=== PATIENT | female | born 1985 | race Caucasian/White ===

== ENCOUNTER → 2018-03-17 | Outpatient (CLI) | payer OTHER | LOC: FIMAGING 10:17 | PROVIDERS: ATTEND Obstetrics & Gynecology | DX: Z34.01 Encounter for supervision of normal first pregnancy, first trimester (principal); Z3A.12 12 weeks gestation of pregnancy ==

== ENCOUNTER → 2018-05-05 | Outpatient (CLI) | payer OTHER | LOC: FIMAGING 07:20 | PROVIDERS: ATTEND Obstetrics & Gynecology | DX: Z34.02 Encounter for supervision of normal first pregnancy, second trimester (principal); Z3A.19 19 weeks gestation of pregnancy ==

== ENCOUNTER 2018-10-03 09:05 | Inpatient (IN) | payer OTHER ==
[2018-10-03] MEDS ORDERED: OXYTOCIN/RINGERS LACTATE 1,000 ML IV PRN (09:12)
[2018-10-03] MEDS ORDERED: TERBUTALINE SULFATE 1 MG/ML VIAL IV PRN (09:12)
[2018-10-03] MEDS ORDERED: LIDOCAINE 1% 300 MG/30 ML SDV SC PRN (09:12)
[2018-10-03] MEDS ORDERED: EPSOM SALT 454 GM TP PRN (09:12)
[2018-10-03] MEDS ORDERED: OLIVE OIL 118 ML BTL MISC PRN (09:12)
[2018-10-03] MEDS ORDERED: IBUPROFEN 600 MG TAB PO PRN (09:12)
[2018-10-03] MEDS ORDERED: MISOPROSTOL 200 MCG TAB PR PRN (09:12)
[2018-10-03] MEDS ORDERED: PENICILLIN G POTASSIUM 5,000,000 UNIT in D5W 150 ML IV ONE (09:30)
--- NOTE | 2018-10-03 09:36 | PDGENHP ---
History and Physical History and Physical: Care: [facility] HPI: Patient is a 33 yo with IUP@ 41-0 weeks that presents to L&D for IOL. She denies any regular contractions, LOF, vb. She reports +FM. She is very anxious. EDC: 09/26/18 which is based on Ultrasound at 6 weeks. Her is complicated by: anxiety, platelets @ 144, +GBS Review of Systems: Constitutional: Denies any fever, chills, or fatigue HEENT: denies any visual changes, difficulty swallowing, hearing loss Cardiovascular: Denies any chest pain, palpitations, leg swelling Respiratory: denies any cough, wheezing, or shortness of breathe GI: Denies any nausea, vomiting, diarrhea, constipation : denies any dysuria, urgency, frequency, vaginal bleeding Musculoskeletal: denies any muscle or bone pain Skin: denies any rashes Neuro: denies any headache, seizures, lightheadedness, dizziness, or loss of consciousness Psychiatric: denies any depression, anxiety, or SI/HI thoughts HISTORY: Previous OB history: G1 Past medical history: anxiety Past surgical history: none Social: Denies any alcohol, tobacco, or drug use. works as [employer]. - Hal Family history: Not relevant Medications: PNV Allergies (list reaction): NKDA LABS: Rh: O+ ABS: Neg Rubella: Immune HbsAg: NR HIV: NR VDRL: NR 1hr: 80 GC: Neg Chlamydia: Neg Pap: Normal GBS: + PHYSICAL EXAM: Constitutional: WN, A&Ox3 HEENT: normocephalic atraumatic, supple Skin: Warm, dry, intact Heart: RRR, no murmur Chest: CTA-B Abdomen: Soft, nontender, gravid SVE: 2/70/-2 Extremities: no edema, negative homans sign Neuro: grossly normal Psych: normal affect assessment: FHT [id number] +accels, no decels, moderate variability Contractions: toco none Assessment: 1) [id number] with IUP@41-0wks 2) PD IOL 3) GBS + 4) Cat 1 FHR tracing Plan: 1) Admit to L&D 2) cook catheter placed 3) pitocin in 6-12hr/PRN 4) reassess 4hrs/PRN 5) IA per protocol 6) hydrotherapy/pain management PRN Today's visit was approximately 30 min, of which >50% of visit 20 min, was spent face to face with pt on direct counseling/coordination of care.
[2018-10-03 10:21] LABS: PLATELET COUNT 121 10^3/uL (150-400)
[2018-10-03] MEDS: LR 1,000 ML IV PRN ×2 (11:04→23:29)
[2018-10-03] MEDS ORDERED: LIDOCAINE 1% 300 MG/30 ML SDV ONE (11:12)
[2018-10-03] MEDS ORDERED: AMMONIA AROMATIC 1 EACH AMP IH ONE (11:13)
[2018-10-03] MEDS ORDERED: MISOPROSTOL 200 MCG TAB ONE (11:13)
[2018-10-03] MEDS ORDERED: OXYTOCIN 10 UNIT/ML VIAL ONE (11:13)
[2018-10-03] MEDS ORDERED: TERBUTALINE SULFATE 1 MG/ML VIAL ONE (11:13)
[2018-10-03] MEDS ORDERED: OLIVE OIL 118 ML BTL ONE (11:13)
[2018-10-03] MEDS ORDERED: D5W IV SCH (13:30)
[2018-10-03] MEDS ORDERED: PENICILLIN POTASSIUM IV SCH (13:30)
[2018-10-03] MEDS: PENICILLIN G POTASSIUM 2,500,000 UNIT in D5W 150 ML IV SCH ×3 (15:06→23:27)
[2018-10-03] MEDS ORDERED: LR 500 ML IV PRN (17:30)
[2018-10-03] MEDS ORDERED: OXYTOCIN/RINGERS LACTATE 500 ML IV SCH (17:30)
--- NOTE | 2018-10-03 20:07 | OBPROG ---
Labor Progress Note Assessment/Plan: Assessment: [id number] with IUP@41-wks IOL GBS+ Cat 2 FHR tracing Plan: cont pitocin AROM hydrotherapy/pain management PRN 10/03/18 20:03 10/03/18 20:06 Subjective/Intrapartum Course: 10/03/18 20:04 Princess is breathing through contractions. She is ambulating in room and continuing to do position changes. desires hydrotherapy. Hal @ BS and supportive. Objective: 10/03/18 10:05 Patient ABO/Rh O POSITIVE 10/03/18 10:05 - SVE Dilation (cm): 4 Effacement (%): 80 Station: -2 Membranes: Intact - Contraction Pattern Assessment Current Contraction Pattern: Regular - FHR Assessment Velez FHR (bpm): 130 (variable and early decelerations noted) FHR Pattern Variability: Moderate FHR Category: 2 Oxytocin Orders Assessment - Pre-Induction/Augmentation Assessment Gestational Age: 41 week(s) and 0 day(s) ICD10 Worksheet Patient Problems: Problems Problem Status Onset Encounter for induction of labor Acute GBS (group B Streptococcus carrier), +RV culture, currently Acute - ICD10 Problem Qualifiers (1) Encounter for induction of labor (2) GBS (group B Streptococcus carrier), +RV culture, currently
--- NOTE | 2018-10-04 00:57 | OBDEL ---
Info Type: Vaginal Presentation at Delivery: Vertex L&D Analgesia/Anesthesia Type: Local GBS+: Yes Intrapartum Medications: Generic Name Dose Route Start Last Admin Trade Name Freq PRN Reason Stop Dose Admin Lactated Ringer's 1,000 mls @ 0 mls/hr 10/03/18 09:12 10/03/18 23:29 Lr IV 10/04/18 09:11 1,000 mls PRN PRN Administration SEE PROTOCOL CONDITIONS Protocol Per Protocol Penicillin G Potassium 2,500, 155 mls @ 155 mls/hr 10/03/18 13:30 10/03/18 23 :27 000 unit/ Dextrose IV 11/02/18 13:29 155 mls Q4H ADIS Administration [place] Oil 118 ml 10/03/18 09:12 10/03/18 23:29 Sweet Oil MISC 04/01/19 09:11 1 btl ONCE PRN Administration perineal massage Discontinued Medications Generic Name Dose Route Start Last Admin Trade Name Freq PRN Reason Stop Dose Admin Penicillin G Potassium 5,000, 160 mls @ 155 mls/hr 10/03/18 09:30 10/03/18 11 :05 000 unit/ Dextrose IV 10/03/18 10:31 160 mls ONCE ONE Administration Protocol - Infant Care Provider Culture Room Worker/EMR TRAINER: Caroline Diamond - Hospital Course Intrapartum: 10/03/18 20:04 Princess is breathing through contractions. She is ambulating in room and continuing to do position changes. desires hydrotherapy. Hal @ BS and supportive. Indications for Delivery: Postterm Unfavorable Cervix Vaginal Delivery - Delivery Provider Delivery Physician/CNM: Laurie Lyles (Dr Armijo Present for VAVD) - Labor and Delivery Onset of Contractions Date: 10/03/18 Onset of Contractions Time: 18:30 Onset of Contractions Type: Induced Rupture of Membranes Date: 10/03/18 Rupture of Membranes Time: 21:30 Rupture of Membranes Type: Artificial Amniotic Fluid Color: Thick Meconium Dilation Complete Date: 10/03/18 Dilation Complete Time: 22:59 Placenta Delivery Date: 10/04/18 Placenta Delivery Time: 00:07 Total Hours of Labor: 5 Non-surgical Procedures: Amniotomy, FSE Episiotomy: Right Lateral Laceration: 1st Degree Repair: 3-0, Vicryl Vaginal Sponge Count Correct: Yes Vaginal Needle Count Correct: Yes Vaginal Sweep Performed: Yes EBL: 300 Delivery Comment: Dr Armijo called to BS @ 0565 for decelerations. Pt was c/c/+1, and pt was pushing with contractions. FHR was 115 +accels, moderate variability Dr Armijo arrived to BS and there were 2 applications/pulls/pop offs with VAVD vacuum was released and pt delivered with small ML episiotomy during applications of vacuum and while vacuum was not applied, FHR was 115-125 with moderate variability baby delivered after epis was made baby was placed on mothers abdomen, where cord was clamped x2 and cut quickly and handed to EMR TRAINER and taken to warm Cord Gases: Cord Gases Cord Blood PCO2 94 mmHg (37-60) H 10/04/18 00:02 Cord Base Excess -24.3 mEq/L (-13.6--3.2) L 10/04/18 00:02 Cord ABG pH 6.87 (7.10-7.37) L 10/04/18 00:02 Cord VBG pH 7.11 (7.20-7.42) L 10/04/18 00:02 - Medications Labor Augmentation/Induction Methods Used: Pitocin, Other (Specify) (cook catheter) Labor Augmentation/Induction Indication: Post Dates Operative Report - Delivery Cord Gases: Cord Gases Cord Blood PCO2 94 mmHg (37-60) H 10/04/18 00:02 Cord Base Excess -24.3 mEq/L (-13.6--3.2) L 10/04/18 00:02 Cord ABG pH 6.87 (7.10-7.37) L 10/04/18 00:02 Cord VBG pH 7.11 (7.20-7.42) L 10/04/18 00:02 Data MERISSA: 09/26/18 Gestational Age: 41 week(s) and 1 day(s) Velez Delivery Date: 10/04/18 Delivery Time: 00:02 Sex of : Male [place] Weight (gm): 0 g Score (1 Min): 5 Score (5 Min): 8 Score (10 Min): 8 ICD10 Worksheet Patient Problems: Problems Problem Status Onset Encounter for induction of labor Acute GBS (group B Streptococcus carrier), +RV culture, currently Acute Vacuum-assisted delivery, delivered, current hospitalization Acute - ICD10 Problem Qualifiers (1) Encounter for induction of labor (2) GBS (group B Streptococcus carrier), +RV culture, currently (3) Vacuum-assisted delivery, delivered, current hospitalization
[2018-10-04] MEDS ORDERED: HYDROCORTISONE 0.5% CREAM TP PRN (01:07)
[2018-10-04] MEDS ORDERED: SIMETHICONE 80 MG TAB CHEW PO PRN (01:07)
[2018-10-04] MEDS ORDERED: DOCUSATE SODIUM 100 MG CAP PO PRN (01:07)
--- NOTE | 2018-10-04 01:12 | OBPROG ---
Labor Progress Note Assessment/Plan: Assessment: [id number] with IUP@41-wks IOL GBS+ Cat 2 FHR tracing Plan: decrease pitocin hydrotherapy pain management PRN anticipate Subjective/Intrapartum Course: 10/03/18 20:04 Princess is breathing through contractions. She is ambulating in room and continuing to do position changes. desires hydrotherapy. Hal @ BS and supportive. 10/04/18 22:22 Pt breathing with each contraction. currently in tub- states she is most comfortable there. Hal @ BS, supportive Objective: 10/03/18 10:05 Patient ABO/Rh O POSITIVE 10/03/18 10:05 Temp Pulse Resp BP Pulse Ox 36.8 C 127 H 18 115/60 10/04/18 00:57 10/04/18 00:57 10/04/18 00:57 10/04/18 00:57 - SVE Dilation (cm): 8 Effacement (%): 80 Station: -1 Membranes: SROM Amniotic Fluid Color: Thick Meconium Dilation Complete Date: 10/03/18 Dilation Complete Time: 22:59 - Contraction Pattern Assessment Current Contraction Pattern: Regular - Procedures Non-surgical Procedures: Amniotomy, FSE Oxytocin Orders Assessment - Pre-Induction/Augmentation Assessment Gestational Age: 41 week(s) and 0 day(s) ICD10 Worksheet Patient Problems: Problems Problem Status Onset Encounter for induction of labor Acute GBS (group B Streptococcus carrier), +RV culture, currently Acute Vacuum-assisted delivery, delivered, current hospitalization Acute - ICD10 Problem Qualifiers (1) Encounter for induction of labor (2) GBS (group B Streptococcus carrier), +RV culture, currently (3) Vacuum-assisted delivery, delivered, current hospitalization
[2018-10-04] MEDS: ACETAMINOPHEN 325 MG TAB PO SCH ×4 (01:15→21:14)
[2018-10-04] MEDS: oxyCODONE IR 5 MG TAB PO PRN ×2 (03:14→10:49)
[2018-10-04] MEDS: PENICILLIN G POTASSIUM 2,500,000 UNIT in D5W 150 ML IV SCH (06:32)
[2018-10-04] MEDS: IBUPROFEN 600 MG TAB PO SCH ×3 (07:08→21:15)
--- NOTE | 2018-10-04 19:09 | OBPP ---
Progress Note Assessment/Plan: Assessment: [id number] s/p VAVD anxiety Plan: routine pp care support PRN start lexapro 5mg QD, agrees to see therapist after discharge 10/04/18 19:07 Subjective/ Course: 10/04/18 19:08 Pt doing ok. She is tearful and worried. Reports increasing anxiety. She is nervous about baby and bleeding. She has not slept today. She is ambulating and voiding without difficulty. Objective: 10/03/18 10:05 Patient ABO/Rh O POSITIVE 10/03/18 10:05 Temp Pulse Resp BP Pulse Ox 36.3 C 80 15 94/57 L 96 10/04/18 08:00 10/04/18 08:00 10/04/18 08:00 10/04/18 08:00 10/04/18 08:00 Uterine Position/Fundal Height: Umbilicus -1, Midline Uterine Tone: Firm
[2018-10-05] MEDS: ACETAMINOPHEN 325 MG TAB PO SCH ×3 (03:17→19:15)
[2018-10-05] MEDS: IBUPROFEN 600 MG TAB PO SCH ×4 (03:19→18:21)
--- NOTE | 2018-10-05 10:13 | OBPP ---
Progress Note Assessment/Plan: Assessment: 33 y/o P1 s/p ppd #1 anxiety Plan: Routine pp care plan d/c tomorrow 10/05/18 10:11 Subjective/ Course: 10/04/18 19:08 Pt doing ok. She is tearful and worried. Reports increasing anxiety. She is nervous about baby and bleeding. She has not slept today. She is ambulating and voiding without difficulty. 10/05/18 10:10 Doing better today. Was able to get some sleep last night. Feeling less anxiety and would like to hold off on Lexapro for now. Pain well controlled with Ibuprofen, vag bleeding wnl, voiding, tolerating activity. going well. Objective: 10/03/18 10:05 Patient ABO/Rh O POSITIVE 10/03/18 10:05 Temp Pulse Resp BP Pulse Ox 36.2 C 80 16 94/63 L 95 10/05/18 08:12 10/05/18 08:12 10/05/18 08:12 10/05/18 08:12 10/05/18 08:12 Uterine Position/Fundal Height: Umbilicus -1 Uterine Tone: Firm Physical Exam - Physical Exam EENT: PERRL/EOMI Neck: non-tender Respiratory: normal breath sounds Cardiac/Chest: regular rate, rhythm Extremities: normal range of motion Skin: normal color Neuro/Psych: alert, normal mood/affect, oriented x 3
[2018-10-05] MEDS: ESCITALOPRAM OXALATE 10 MG TAB PO SCH (11:00)
[2018-10-06] MEDS: IBUPROFEN 600 MG TAB PO SCH ×2 (01:36→07:53)
[2018-10-06] MEDS: ACETAMINOPHEN 325 MG TAB PO SCH ×2 (01:38→07:54)
[2018-10-06] MEDS: ESCITALOPRAM OXALATE 10 MG TAB PO SCH (07:55)
[2018-10-06 08:27] VITALS: BP 118/78
--- NOTE | 2018-10-06 11:04 | OBGCSDC ---
General Delivery Information - General Info : 1 Para: 1 Abortions: 0 Type: Vaginal L&D Analgesia/Anesthesia Type: Local Admission Date: 10/03/18 Labs: Patient ABO/Rh O POSITIVE 10/03/18 10:05 Hct 41.4 % (38.0-47.0) 10/03/18 10:05 - Hospital Course Intrapartum: 10/03/18 20:04 Princess is breathing through contractions. She is ambulating in room and continuing to do position changes. desires hydrotherapy. Hal @ BS and supportive. 10/04/18 22:22 Pt breathing with each contraction. currently in tub- states she is most comfortable there. Hal @ BS, supportive : 10/04/18 19:08 Pt doing ok. She is tearful and worried. Reports increasing anxiety. She is nervous about baby and bleeding. She has not slept today. She is ambulating and voiding without difficulty. 10/05/18 10:10 Doing better today. Was able to get some sleep last night. Feeling less anxiety and would like to hold off on Lexapro for now. Pain well controlled with Ibuprofen, vag bleeding wnl, voiding, tolerating activity. going well. 10/06/18 11:03 S) Pt doing well, reports min pain and bleeding. she is ambulating and voiding without difficulty. She is . She desires discharge home today. O) VSS, afebrile constitutional: WNWF, A&Ox3 HEENT: normocephalic, atraumatic, supple Heart: RRR, No murmur Chest: CTA-B Abdomen: Soft, nontender Uterus: Firm at U-2 Lochia: Minimal rubra Perineum: Intact, healing well Extremities: Trace edema, and negative Cinda's sign Neuro: Grossly normal A) 33 year-old S/P PPD#2 P) Discharge home today Continue Pelvic rest x6wks Discussed danger signs (infection, preeclampsia, depression, heavy bleeding, etc) RTO in 2/4/6 weeks Vaginal - Delivery Provider Delivery Physician/CNM: Laurie Lyles (Dr Armijo Present for VAVD) - Diagnosis Labor: Induced Rupture of Membranes Type: Artificial Amniotic Fluid Color: Thick Meconium Episiotomy: Right Lateral Laceration: 1st Degree Repair: 3-0, Vicryl - Procedures Non-surgical Procedures: Amniotomy, FSE - Delivery Non-surgical Procedures: Amniotomy, FSE [place] Data MERISSA: 09/26/18 Gestational Age: 41 week(s) and 3 day(s) Velez Delivery Date: 10/04/18 Delivery Time: 00:02 Sex of Infant: Male [place] Weight (gm): 0 g Score (1 Min): 5 Score (5 Min): 8 Score (10 Min): 8 Discharge Information - Discharge Information Prescriptions: Ibuprofen [Motrin (*)] 600 mg PO Q6H #40 tab Condition: Good
== END 2018-10-06 12:00 | disposition home or self-care (01) | DRG 807 ==
LOC: FLD 09:05 → FOB 10-04 03:03
PROVIDERS: ADMIT Advanced Practice Midwife; ATTEND Obstetrics & Gynecology
PROC: 4A1H7CZ Monitoring of Products of Conception, Cardiac Rate, Via Natural or Artificial Opening (ICD-10-PCS; principal; 2018-10-03)
PROC: 10D07Z6 Extraction of Products of Conception, Vacuum, Via Natural or Artificial Opening (ICD-10-PCS; principal; 2018-10-03)
PROC: 0HQ9XZZ Repair Perineum Skin, External Approach (ICD-10-PCS; principal; 2018-10-03)
PROC: 10907ZC Drainage of Amniotic Fluid, Therapeutic from Products of Conception, Via Natural or Artificial Opening (ICD-10-PCS; principal; 2018-10-03)
PROC: 0W8NXZZ Division of Female Perineum, External Approach (ICD-10-PCS; principal; 2018-10-03)
DX: O48.0 Post-term pregnancy (principal); O76 Abnormality in fetal heart rate and rhythm complicating labor and delivery; O77.0 Labor and delivery complicated by meconium in amniotic fluid; O70.0 First degree perineal laceration during delivery; O99.344 Other mental disorders complicating childbirth; O99.820 Streptococcus B carrier state complicating pregnancy; F41.9 Anxiety disorder, unspecified; Z3A.41 41 weeks gestation of pregnancy; Z37.0 Single live birth
CPT/HCPCS: J2540; J2590; J3105